=== PATIENT | male | born 1965 | race Caucasian/White ===

== ENCOUNTER 2017-01-09 15:35 | Inpatient (IN) | payer OTHER ==
[~2017-01-09] VITALS: Ht 172.7 cm; Wt 96.0 kg
[~2017-01-09 15:35] MED LIST: ADDE20 PO; CLON1 PO; NEUR100C PO; QUET1TAB11 PO; TAMS0.4C4 PO
[2017-01-17] MEDS ORDERED: ADDE30TA PO (13:56)
[2017-01-17] MEDS ORDERED: LACTCAP8 PO (13:56)
[2017-01-17] MEDS ORDERED: MAPA500T13 PO (13:56)
[2017-01-17] MEDS ORDERED: MULT-65 PO (13:56)
[2017-01-17] MEDS ORDERED: PRIL20TA2 PO (13:56)
[2017-01-19] MEDS ORDERED: LACTATED RINGER'S 1000 ML IV PRN (07:00)
[2017-01-19] MEDS ORDERED: VANCOMYCIN 1,000 MG/NS 250 ML IV SCH ×2 (07:00)
[2017-01-19] MEDS ORDERED: INSULIN HUMAN REGULAR 1,000 UNITS/10 ML VIAL SQ PRN (07:00)
[2017-01-19] MEDS ORDERED: ceFAZolin 2 GM PREMIX 50 ML ONE (07:00)
[2017-01-19] MEDS ORDERED: CHLORHEXIDINE GLUCONATE 2 % 1 PACK (2 CLOTHS) TOPICAL PRN (07:00)
[2017-01-19] MEDS ORDERED: METOPROLOL TARTRATE 25 MG TAB PO PRN (07:00)
[2017-01-19] MEDS ORDERED: THROMBIN (TOPICAL) 5,000 UNIT VIAL ONE (07:00)
[2017-01-19] MEDS ORDERED: BUPIVACAINE HCL PF 0.5% 30 ML VIAL ONE (07:00)
[2017-01-19] MEDS ORDERED: POVIDONE IODINE 5% (ANTISEPSIS KIT) 4 APPLICATIONS EACH NARE PRN (07:00)
[2017-01-19] MEDS ORDERED: GELFOAM SIZE 100 ONE (07:00)
[2017-01-19] MEDS ORDERED: HEPARIN SODIUM - SQ 10,000 UNITS/ML VIAL ONE (07:00)
[2017-01-19] MEDS ORDERED: SODIUM CHLORID 0.9% 500 ML IV PRN (07:00)
[2017-01-19] MEDS ORDERED: GENTAMICIN SULFATE 80 MG/2 ML VIAL ONE (07:01)
[2017-01-19] MEDS ORDERED: ALEV220T14 PO (07:11)
[2017-01-19 07:13] VITALS: BP 117/83; PULSE 80; RESP 18; TEMP 98; O2SAT 96
[2017-01-19] MEDS ORDERED: MIDAZOLAM HCL 2 MG/2 ML VIAL ONE (07:49)
[2017-01-19] MEDS ORDERED: ACETAMINOPHEN 1000 MG/100 ML VIAL IV ONE (07:49)
[2017-01-19] MEDS ORDERED: ARTIFICIAL TEARS OPTH OINT 3.5 APPLIC/3.5 GM TUBO ONE (07:49)
[2017-01-19] MEDS ORDERED: fentaNYL CITRATE 250 MCG/5 ML AMP ONE ×2 (07:50→07:51)
[2017-01-19] MEDS ORDERED: FAMOTIDINE 20 MG/2 ML VIAL ONE (07:50)
[2017-01-19] MEDS ORDERED: HYDROmorphone HCL PF 2 MG/ML VIAL ONE (07:50)
[2017-01-19] MEDS ORDERED: PROPOFOL 200 MG/20 ML AMP IV ONE (12:00)
[2017-01-19] MEDS ORDERED: LACTATED RINGER'S 1000 ML INJ 2,000 ML IV ONE (12:00)
[2017-01-19] MEDS ORDERED: ONDANSETRON HCL 4 MG/2 ML VIAL IV PUSH ONE (12:00)
[2017-01-19] MEDS ORDERED: PHENYLEPH/NS 1000 MCG/10 ML SYR IV ONE (12:00)
[2017-01-19] MEDS ORDERED: SODIUM CHLORID 0.9% 500 ML INJ 500 ML IV ONE (12:00)
[2017-01-19] MEDS ORDERED: ePHEDrine/NS 25 MG/5 ML SYR IV ONE (12:00)
[2017-01-19] MEDS ORDERED: diphenhydrAMINE HCL 50 MG/ML VIAL IV PRN (17:15)
[2017-01-19] MEDS ORDERED: SODIUM CHLORIDE 0.9% FLUSH 5 ML FLUSH IVF PRN (17:15)
[2017-01-19] MEDS ORDERED: MORPHINE SULFATE 4 MG/ML INJ IV PUSH PRN ×2 (17:15)
[2017-01-19] MEDS ORDERED: ACETAMINOPHEN 325 MG TAB PO PRN (17:15)
[2017-01-19] MEDS ORDERED: NALOXONE HCL 0.4 MG/ML AMP IV PRN (17:15)
--- NOTE | 2017-01-19 17:51 | PD.OP ---
Operative Report Date of Surgery: Jan 19, 2017 Preoperative Diagnosis: Lumbar spondylosis Postoperative Diagnosis: Lumbar spondylosis Procedure: L4-L5 decompressive laminectomy, interbody arthrodesis using Peek cage filled with autologous iliac crest bone graft, L4-L5 posterolateral fusion using autologous iliac crest bone graft, with demineralized bone matrix, L4-L5 instrumental fixation using transpedicular screws and rods, microsurgical dissection. Anesthesia: general Surgeon: Douglas Partida Edger Automatic(s): Merari Ayala Operation and Findings: Severe degenerative severe adjacent level degeneration at L4-L5 INDICATIONS FOR PROCEDURE Mr Rosenberg is a 51 year-old male who presented with intractable mechanical back pain and lázaro evidence of bilateral lower extremity L5 radiculopathy. He failed maximum nonsurgical management including multiple modalities of conservative treatment as well as pain management interventions by an interventional pain specialist. The patient has undergone a previous surgical procedure. A redo surgical decompression and arthrodhesis were indicated as a last resort. The [id number] details of the procedure, indications, alternatives, risks and potential complications were fully discussed with the patient. The patient fully understood. All the questions were answered. No guarantees were given. The patient voiced requesting the procedure and provided informed consents. The patient was offered the alternative of delaying the procedure and continuing with nonsurgical management. DETAILS OF THE SURGICAL PROCEDURE Prior to the procedure, the surgical incision was marked in the preoperative surgical holding room, and the procedure, risks, and potential complications revisited with the patient. Placement of electrodes for intraoperative neurophysiological monitoring was completed. The patient was taken to the operative room, and following induction of general anesthesia, endotracheal intubation was performed. A Vu catheter, bilateral ANNIKA hose and sequential compression devices were placed and kept throughout the procedure. The patient was positioned prone, over a Carlos table using gel pads and bolsters.. All pressure in the preoperative surgical holding room points were carefully padded with eggcrate and gel mattress. The eyes were taped shut after ointment was applied by the anesthesiologist to prevent corneal abrasion. A bear hugger was placed over the exposed upper body to maintain control of the core body temperature. The electrophysiological team placed needles and electrodes in the proper location and baseline SSEPs were registered prior to and after positioning. Following positioning the levels were carefully assessed using AP and lateral views with the C-arm. The surgical procedure was performed in several steps as follows: SURGICAL APPROACH Once the patient was positioned and the proper levels were confirmed with the C- arm, a midline incision was outlined on the skin extending from the spinous process of L4 down to the spinous process of L5. The skin incision was made with a #10 blade. Small subcutaneous bleeders were controlled with the cautery and the dissection was carried out into the deeper planes opening the thoracolumbar fascia with the Bovie. The spinous process of L4-L5 were identified and a subperiosteal dissection was carried out over the spinous process laminae, facet and transverse processes of L4, and L5. The prior instrumentation was carefully exposed and a self-retaining retractor was placed on the incision. At this point of the procedure, the cross link of the prior instrumentation was carefully exposed free of scar tissue and the cross link was removed. Then , the caps of the previously placed screws at L5 were sequentially removed and the rods were cut between L5 and S1 allowing removal of the rods. INSTRUMENTAL FIXATION At this point of the procedure, placement of bilateral transpedicular screws was necessary for stabilization of the spine. Initially, the entry point for the screw was selected anatomically at the junction of the facet joint , transverse process and para interarticularis. Bilateral transpedicular screws were placed at L4. Initially, the entry point for the screw was selected anatomically at the junction of the facet, with the transverse process, and the pars interarticularis at L4. This was started with a Giamshetti needle followed by the use of a suresh wire. A tap was used to create the threads for the screws. Finally bilateral transpedicular screws were carefully placed bilaterally at L4 under fluoroscopic visualization. An appropriate purchase was achieved with all screws. The position of each screw was assessed anatomically with an AP, lateral , oblique Xrays. An intraoperative scan view of the spine was then performed using the iso-centric c-arm. Each screw was then assessed electrophysiologically stimulating each screw with a nerve stimulator. SURGICAL DECOMPRESSION There was significant mass effect with compression of the neural structures. In order to relieve neural compression, it was necessary to perform a decompressive laminectomy, with decompression of the spinal canal and bilateral lateral recesses. Note that the scope of such decompression was significantly more extensive than the minimal exposure necessary to perform an interbody fusion, as there was extreme facet arthropathy with near complete collapse of the disk spaces and severe stenosis cause by the hyperthrophic joint facets. At this point of the procedure the operative microscope was draped in the usual sterile fashion and brought to the field. The rest of the surgical procedure was performed using microdissection technique with the exception of the closure. Under the operating microscope, a decompressive laminectomy was carried out at L4-L5 as follow: The laminae, base of the spinous processes and facets were carefully drilled exposing the ligamentum flavum. The facets were abnormal with mechanical instability. A disk protusion was compressing the neural structures and exiting nerve roots. A near complete facetectomy was necessary resulting in further instability. The ligamentum flavum appeared hypertrophic, resulting on mass effect on the dorsal surface of the neural structures. The superior free border of the ligamentum flavum was elevated with a ligament dissector and the ligamentum flavum was removed with a 3 and 4 mm Kerrison forceps. The ligament was very adherent to the dural sac and during the dissection, and extreme care was taken during the dissection. The exiting nerve roots were identified, and a wide foraminotomy was performed with a Kerrison in their trajectory towards the neural foramen. Epidural veins located laterally to the dural sac were coagulated with the bipolar cautery, and then incised using microscissors. Gentle medial retraction of the dural sac allowed me to expose the disc space for the discectomy. Upon completion of the discectomy, an excellent decompression of the neural structures was achieved. Increased motion was noted thorough the procedure, which was consistent with mechanical instability. INTERBODY ARTHRODHESIS In order to correct the narrowing of the disk space and maintain distraction of the space, and to achieve a solid interbody fusion, it was necessary the insertion of an interbody device into the disk space. Otherwise, the disk space would collapse, compromising the result of the surgical procedure. At this point of the procedure, the annulus fibrosus of the disk was carefully coagulated with a bipolar cautery and incised using an 11 bladed knife. Then, a microdiscectomy was carried out in a standard fashion using a combination of straight and up-biting pituitary forceps. A reverse angle curette was applied underneath the posterior longitudinal ligament, and used to push the disk fragments into the disk space, so they can be safely removed with a pituitary forceps. Once the discectomy was completed, it was necessary to decorticate the endplates, in order to eliminate the cartilaginous endplate and to expose healthy bone appropriate to perform the interbody fusion. The endplates at L4- L5 were then thoroughly decorticated using increasing size bone sukumar and ring curets, eliminating the cartilaginous fragments from both, the superior and inferior endplates. A disk space distractor was applied to the pedicle screws and gentle distraction was applied. This maneuver was assisted by the use of a disk distractor. Increased motility was noted at the disk, which was consistent with instability due to facet arthropathy. Once a thorough preparation of the disk space was achieved, the disk space was irrigated with antibiotic solution, and the interbody fusion was performed by carefully impacting an expandable PPEK cage filled with autologous iliac crest bone graft. The cage was cartefully expanded. A solid position of the cage with good purchase was achieved. The position of the cage was assessed anatomically with a probe and radiologically with the C-arm. POSTEROLATERAL FUSION The posterolateral fusion is a critical component to the procedure, to prevent future fatigue and failure of the instrumental fixation. Initially, the transverse processes of the vertebral bodies, lateral surface of the facets and the lateral gutters of the spine were carefully cleaned, eliminating all soft tissue and muscle attachments. The area was then irrigated with a large amount of antibiotic solution. Subsequently, the transverse processes, lateral surface of the facets, and lateral gutters of the spine were thoroughly decorticated using the TPS drill with a 5mm cutting carol, exposing cancellous bone, in preparation for the posterolateral fusion. The incision was again irrigated with antibiotic solution. Then, the posterolateral fusion was then performed by carefully packing the lateral gutters of the spine at L4-L5 with autologous bone graft combined with demineralized bone matrix. I packed as much bone as possible. COMPLETION OF THE INSTRUMENTATION AND CLOSURE The rods were brought to the field, applied to all the screws, and the screw caps were sequentially applied. Compression was performed between the pedicle screws, and final tightening of the screws was completed using a torque wrench. The incision was again thoroughly irrigated with several liters of ntibiotic solution, and hemostasis secured with the bipolar cautery. A Valsalva Maneuver performed by the anesthesiologist failed to show any evidence of cerebrospinal fluid leak or bleeding. A 7 mm Carlos-Cobos drain was left in the epidural space and externalized through a separate stab incision. The incision was then closed in planes. 0 Vicryl was used in an interrupted fashion to close the thoracolumbar fascia and the superficial fascia. The subcutaneous tissue was then approximated using 3-0 Vicryl in an interrupted fashion. Special care was taken to avoid space. The skin was then closed with 4-0 Vicryl in a running, subcuticular fashion. Dermabond was applied to the skin. Each plane of closure was irrigated with antibiotic solution. At the end of the procedure the sponge, needle and instrument counts were all correct. Estimated blood loss was 150 cc. No blood transfusion was given. The entire procedure was performed using continuous electrophysiological monitoring of the somatosensorial evoked potentials and EMG. The patient received prophylactic antibiotics. The patient was then extubated and transferred to the recovery room in stable condition. Douglas Partida MD Jan 19, 2017 17:51
[2017-01-19] MEDS ORDERED: *MEPERIDINE 25 MG INJ VIAL PERIprocedural Use ONLY ONE (18:04)
--- NOTE | 2017-01-19 18:29 | RADRPT ---
EXAM DATE/TIME: 01/19/2017 12:36 [facility] COMPARISON: No previous studies available for comparison. INDICATIONS : L4-S1 fusion. MEDICAL HISTORY : None. SURGICAL HISTORY : None. ENCOUNTER: Subsequent ACUITY: 1 day PAIN SCORE: Non-responsive. LOCATION: L-Spine FINDINGS: Multiple Hinkle down lateral views of lower lumbar spine were obtained intraoperatively using a matrix camera. The first image demonstrates a metal probe posterior to the L3-4 interspace. There are 2 thi n metallic pin like devices projected over the L5 vertebral body. The patient has pedicle screws bila terally at the S1 level with posterior fixation sierra. There is bone graft material and markers in the L5-S1 space. Alignment is anatomic. There are mild degenerative changes at the L4-5 level. This study is labeled assuming 5 [id number] lumbar-type vertebra. The subsequent images demonstrate placem ent of pedicle screws bilaterally at the L3 and L4 levels with metal intervertebral device placed at L3-4. There is placement of posterior fixation rods on the final film. CONCLUSION: Interval fusion at the L3-4 and L4-5 levels. Orestes Hartley MD on January 19, 2017 at 18:20 Board Certified Radiologist. This report was verified electronically.
[2017-01-19] MEDS ORDERED: DO NOT ADM ANY ANTICOAGULANT DRUGS PRN (20:15)
[2017-01-19 20:45] VITALS: BP 116/99; PULSE 90; RESP 18; TEMP 96.2; O2SAT 96
[2017-01-19] MEDS: SODIUM CHLORIDE 0.9% FLUSH 5 ML FLUSH IVF SCH (21:00)
[2017-01-19 21:25] VITALS: O2SAT 96
[2017-01-19] MEDS: PCA - TOTAL MG DILAUDID DELIVERED PER SHIFT SCH (22:00)
[2017-01-19] MEDS: ceFAZolin 2 GM PREMIX 50 ML IV SCH (23:58)
[2017-01-20] VITALS (7 sets, daily range): BP systolic 118–155; BP diastolic 65–90; PULSE 61–91; RESP 16–18; TEMP 95.9–98; O2SAT 92–98
[2017-01-20] MEDS: PCA - TOTAL MG DILAUDID DELIVERED PER SHIFT SCH ×3 (04:47→22:05)
[2017-01-20] MEDS: NS + KCL 20 MEQ INJ 1,000 ML IV SCH ×4 (04:47→23:46)
[2017-01-20] MEDS: HYDROmorphone HCL PCA 6 MG/30 ML IV SCH (04:53)
[2017-01-20] MEDS: SODIUM CHLOR 0.9% 1000 ML INJ 1,000 ML IV SCH (07:00)
[2017-01-20 07:13] LABS: AUTOMATED NEUTROPHIL # 8.5 TH/MM3 (1.8-7.7); BASOPHIL % 0.2 % (0.0-2.0); HEMATOCRIT 44.9 % (39.0-51.0); HEMO FLAGS DIFF FINAL; LYMPH % 6.3 % (9.0-44.0); LYMPHOCYTE # 0.6 TH/MM3 (1.0-4.8); MEAN CELL VOLUME 86.4 FL (80.0-100.0); MEAN CORPUSCULAR HEMOGLOBIN 29.6 PG (27.0-34.0); MEAN CORPUSCULAR HGB CONC 34.3 % (32.0-36.0); MONO % 8.4 % (0.0-8.0); NEUT % 85.1 % (16.0-70.0); PLATELET COUNT 126 TH/MM3 (150-450); RED CELL DISTRIBUTION WIDTH 14.1 % (11.6-17.2); WHITE BLOOD COUNT 9.9 TH/MM3 (4.0-11.0)
[2017-01-20 07:30] LABS: BICARBONATE 27.7 MEQ/L (21.0-32.0); POTASSIUM 4.4 MEQ/L (3.5-5.1)
[2017-01-20] MEDS: ceFAZolin 2 GM PREMIX 50 ML IV SCH ×2 (08:38→16:26)
[2017-01-20] MEDS: SODIUM CHLORIDE 0.9% FLUSH 5 ML FLUSH IVF SCH ×2 (08:49→21:20)
[2017-01-20] MEDS: PANTOPRAZOLE SODIUM 40 MG VIAL IVP SCH ×2 (08:50→13:15)
--- NOTE | 2017-01-20 10:04 | PD.CONS ---
HPI Service [facility] Hospitalists Consult Requested By Primary Care Physician Demetrius Hall MD Diagnoses: History of Present Illness Pt is 51 yo presenting with bilateral lower extremity radiculopathy. He was admitted by Dr Partida and taken 01/19 for L4-L5 decompressive laminectomy, interbody arthrodesis using Peek cage filled with autologous iliac crest bone graft, L4-L5 posterolateral fusion using autologous iliac crest bone graft, with demineralized bone matrix, L4-L5 instrumental fixation using transpedicular screws and rods. Today he is in chair but with alot of nausea and vomiting. Review of Systems Other n/v bilateral lower ext radiculopathy Past Family Social History Past Medical History back pain with lower ext radiculopathy "cystic fibrosis" yearly pna htn bipolar anxiety/depression hx laminectomy x 2 gynecomastia surgery. Reported Medications Reported Meds & Active Scripts Active Reported Aleve Arthritis (Naproxen Sodium) 220 Mg Tab 220 Mg PO BID PRN Prilosec (Omeprazole Magnesium) 20 Mg Tab 20 Mg PO DAILY Probiotic (Lactobacillus Acidophilus) 1 Cap Cap 1 Cap PO DAILY Mapap Extra Strength (Acetaminophen) 500 Mg Tab 500 Mg PO Q4-6H PRN Multi-Vitamin Daily (Multiple Vitamin) 1 Tab Tab 1 Tab PO DAILY Adderall (Amphetamine-Dextroamphetamine) 30 Mg Tab 30 Mg PO DAILY Avoid late evening doses. Space doses at least 4 to 6 hours if more than once/day dosing. Quetiapine (Quetiapine Fumarate) 400 Mg Tab 800 Mg PO HS Klonopin (Clonazepam) 1 Mg Tab 1 Mg PO HS Neurontin (Gabapentin) 100 Mg Cap 100 Mg PO HS Allergies: Coded Allergies: No Known Allergies (Unverified , 01/19/17) Family History nc Social History no etoh/tob Physical Exam Vital Signs in chair appears nauseated oriented and follows commands heart reg lung cta abd s/nt ext no edema Vital Signs Date Time Temp Pulse Resp B/P Pulse Ox O2 Delivery O2 Flow Rate FiO2 01/20/17 08:29 98 21 01/20/17 08:00 96.8 91 16 127/75 98 01/20/17 04:53 18 01/20/17 04:15 98.0 85 18 118/79 97 01/20/17 00:10 96.5 85 18 123/65 95 01/19/17 21:25 96 Nasal Cannula 2.00 01/19/17 20:45 96.2 90 18 116/99 96 01/19/17 19:44 Nasal Cannula 2.00 01/19/17 18:30 91 12 148/79 96 Nasal Cannula 3 01/19/17 18:15 91 12 149/79 97 Nasal Cannula 3 01/19/17 18:00 86 12 136/81 96 Nasal Cannula 3 01/19/17 17:45 79 12 128/77 98 Nasal Cannula 3 01/19/17 17:35 97.6 80 12 124/72 98 Nasal Cannula 3 Laboratory Laboratory Tests Test 01/20/17 06:43 White Blood Count 9.9 Red Blood Count 5.20 Hemoglobin 15.4 Hematocrit 44.9 Mean Corpuscular Volume 86.4 Mean Corpuscular Hemoglobin 29.6 Mean Corpuscular Hemoglobin 34.3 Concent Red Cell Distribution Width 14.1 Platelet Count 126 Mean Platelet Volume 8.0 Neutrophils (%) (Auto) 85.1 Lymphocytes (%) (Auto) 6.3 Monocytes (%) (Auto) 8.4 Eosinophils (%) (Auto) 0.0 Basophils (%) (Auto) 0.2 Neutrophils # (Auto) 8.5 Lymphocytes # (Auto) 0.6 Monocytes # (Auto) 0.8 Eosinophils # (Auto) 0.0 Basophils # (Auto) 0.0 CBC Comment DIFF FINAL Differential Comment Sodium Level 141 Potassium Level 4.4 Chloride Level 108 Carbon Dioxide Level 27.7 Anion Gap 5 Blood Urea Nitrogen 18 Creatinine 0.73 Estimat Glomerular Filtration 113 Rate Random Glucose 119 Calcium Level 8.0 Result Diagram: 01/20/17 0643 01/20/17 0643 Assessment and Plan Problem List: (1) Radiculopathy Status: Acute Plan: Pt is 51 yo presenting with bilateral lower extremity radiculopathy. He was admitted by Dr Partida and taken 01/19 for L4-L5 decompressive laminectomy, interbody arthrodesis using Peek cage filled with autologous iliac crest bone graft, L4-L5 posterolateral fusion using autologous iliac crest bone graft, with demineralized bone matrix, L4-L5 instrumental fixation using transpedicular screws and rods. Today he is in chair but with alot of nausea and vomiting. ..He has post op n/v today - antiemetics orders -cont ivf -will order laxative regimen -cont pain medication per nsg -dvt prophylaxis -liquids today and advance diet slowly -ambulate as tolerated. -resume home medications. (2) Bipolar 1 disorder Status: Chronic Plan: home meds (3) HTN (hypertension) Status: Chronic Plan: home meds (4) Anxiety and depression Status: Chronic Plan: home meds. Damian Peña MD Jan 20, 2017 10:04 -cont ivf -will order laxative regimen -cont pain medication per nsg -dvt prophylaxis -liquids today and advance diet slowly -ambulate as tolerated. -resume home medications. (2) Bipolar 1 disorder Status: Chronic Plan: home meds (3) HTN (hypertension) Status: Chronic Plan: home meds (4) Anxiety and depression Status: Chronic Plan: home meds. Damian Peña MD Jan 20, 2017 10:04 01/20/17 08:29 98 21 01/20/17 08:00 96.8 91 16 127/75 98 01/20/17 04:53 18 01/20/17 04:15 98.0 85 18 118/79 97 01/20/17 00:10 96.5 85 18 123/65 95 01/19/17 21:25 96 Nasal Cannula 2.00 01/19/17 20:45 96.2 90 18 116/99 96 01/19/17 19:44 Nasal Cannula 2.00 01/19/17 18:30 91 12 148/79 96 Nasal Cannula 3 01/19/17 18:15 91 12 149/79 97 Nasal Cannula 3 01/19/17 18:00 86 12 136/81 96 Nasal Cannula 3 01/19/17 17:45 79 12 128/77 98 Nasal Cannula 3 01/19/17 17:35 97.6 80 12 124/72 98 Nasal Cannula 3 Physical Exam GENERAL: This is a well-nourished, well-developed patient, in no apparent distress. SKIN: No rashes, ecchymoses or lesions. Cool and dry. HEAD: Atraumatic. Normocephalic. No temporal or scalp tenderness. EYES: Pupils equal round and reactive. Extraocular motions intact. No scleral icterus. No injection or drainage. ENT: Nose without bleeding, purulent drainage or septal hematoma. Throat without erythema, tonsillar hypertrophy or exudate. Uvula midline. Airway patent. NECK: Trachea midline. No JVD or lymphadenopathy. Supple, nontender, no meningeal signs. CARDIOVASCULAR: Regular rate and rhythm without murmurs, gallops, or rubs. RESPIRATORY: Clear to auscultation. Breath sounds equal bilaterally. No wheezes , rales, or rhonchi. GASTROINTESTINAL: Abdomen soft, non-tender, nondistended. No hepato-splenomegaly , or palpable masses. No guarding. MUSCULOSKELETAL: Extremities without clubbing, cyanosis, or edema. No joint tenderness, effusion, or edema noted. No calf tenderness. Negative Homans sign bilaterally. NEUROLOGICAL: Awake and alert. Cranial nerves II through XII intact. Motor and sensory grossly within normal limits. Five out of 5 muscle strength in all muscle groups. Normal speech. Laboratory Laboratory Tests Test 01/20/17 06:43 White Blood Count 9.9 Red Blood Count 5.20 Hemoglobin 15.4 Hematocrit 44.9 Mean Corpuscular Volume 86.4 Mean Corpuscular Hemoglobin 29.6 Mean Corpuscular Hemoglobin 34.3 Concent Red Cell Distribution Width 14.1 Platelet Count 126 Mean Platelet Volume 8.0 Neutrophils (%) (Auto) 85.1 Lymphocytes (%) (Auto) 6.3 Monocytes (%) (Auto) 8.4 Eosinophils (%) (Auto) 0.0 Basophils (%) (Auto) 0.2 Neutrophils # (Auto) 8.5 Lymphocytes # (Auto) 0.6 Monocytes # (Auto) 0.8 Eosinophils # (Auto) 0.0 Basophils # (Auto) 0.0 CBC Comment DIFF FINAL Differential Comment Sodium Level 141 Potassium Level 4.4 Chloride Level 108 Carbon Dioxide Level 27.7 Anion Gap 5 Blood Urea Nitrogen 18 Creatinine 0.73 Estimat Glomerular Filtration 113 Rate Random Glucose 119 Calcium Level 8.0 Result Diagram: 01/20/1743 01/20/1743 Damian Peña MD Jan 20, 2017 10:04
[2017-01-20] MEDS ORDERED: LACTULOSE SYRUP 20 GM/30 ML CUP PO PRN (10:15)
[2017-01-20] MEDS ORDERED: BISACODYL EC 5 MG TABEC PO ONE (10:15)
[2017-01-20] MEDS ORDERED: DOCUSATE SODIUM 100 MG CAP PO ONE (10:15)
[2017-01-20] MEDS ORDERED: BISACODYL EC 5 MG TABEC PO PRN (10:15)
[2017-01-20] MEDS ORDERED: ONDANSETRON HCL 4 MG/2 ML VIAL IV PUSH PRN (10:15)
--- NOTE | 2017-01-20 11:26 | HHI.NSPN ---
(Latia Sosa) Note Status Status: Progress Note (Latia Sosa) Interval History Interval History Mr. Rosenberg s/p L4-L5 decompressive laminectomy, interbody arthrodesis using Peek cage filled with autologous iliac crest bone graft, L4-L5 posterolateral fusion using autologous iliac crest bone graft, with, demineralized bone matrix , L4-L5 instrumental fixation using transpedicular screws and rods, microsurgical dissection on 01/19/17. 01/20: sitting up in chair, c/o moderate nausea with pain medications, requesting less stronger. (Latia Sosa) Labs, Micro, & Vital Signs Results Date Time Temp Pulse Resp B/P Pulse Ox O2 Delivery O2 Flow Rate FiO2 01/20/17 08:29 98 21 01/20/17 08:00 96.8 91 16 127/75 98 01/20/17 04:53 18 01/20/17 04:15 98.0 85 18 118/79 97 01/20/17 00:10 96.5 85 18 123/65 95 01/19/17 21:25 96 Nasal Cannula 2.00 01/19/17 20:45 96.2 90 18 116/99 96 01/19/17 19:44 Nasal Cannula 2.00 01/19/17 18:30 91 12 148/79 96 Nasal Cannula 3 01/19/17 18:15 91 12 149/79 97 Nasal Cannula 3 01/19/17 18:00 86 12 136/81 96 Nasal Cannula 3 01/19/17 17:45 79 12 128/77 98 Nasal Cannula 3 01/19/17 17:35 97.6 80 12 124/72 98 Nasal Cannula 3 01/20/17 07:00 Intake Total 2490 ml Output Total 1115 ml Balance 1375 ml Constitutional Vital Signs Date Time Temp Pulse Resp B/P Pulse Ox O2 Delivery O2 Flow Rate FiO2 01/20/17 08:29 98 21 01/20/17 08:00 96.8 91 16 127/75 98 01/20/17 04:53 18 01/20/17 04:15 98.0 85 18 118/79 97 01/20/17 00:10 96.5 85 18 123/65 95 01/19/17 21:25 96 Nasal Cannula 2.00 01/19/17 20:45 96.2 90 18 116/99 96 01/19/17 19:44 Nasal Cannula 2.00 01/19/17 18:30 91 12 148/79 96 Nasal Cannula 3 01/19/17 18:15 91 12 149/79 97 Nasal Cannula 3 01/19/17 18:00 86 12 136/81 96 Nasal Cannula 3 01/19/17 17:45 79 12 128/77 98 Nasal Cannula 3 01/19/17 17:35 97.6 80 12 124/72 98 Nasal Cannula 3 01/20/17 07:00 Intake Total 2490 ml Output Total 1115 ml Balance 1375 ml (Latia Sosa) Review of Systems/Exam Exam The patient is alert, awake and oriented to time, place and person. Speech is fluent. Sitting up in chair with TLSO Cranial nerve examination: pupils to be equal, round and reactive to light. Extra-ocular movements are intact. Facial motor and sensory function are normal and symmetrical. Neck is soft and supple Motor: moving all four extremities, limited LE due to pain (Latia Sosa) Medications Current Medications Current Medications Medications (Trade) Dose Ordered Sig/Mauro Route PRN Reason Start Time Stop Time Status Last Admin Dose Admin Sodium Chloride 1,000 ml @ 30 mls/hr Q24H IV 01/19/17 07:00 Potassium Chloride/Sodium Chloride (NS + KCl 20 Meq Inj) 1,000 ml @ 100 mls/hr Q10H IV 01/19/17 19:00 01/20/17 04:47 IV Flush (NS Flush) 2 ml UNSCH PRN IVF FLUSH AFTER USING IV ACCESS 01/19/17 17:15 IV Flush 2 ml 2 ml BID IVF 01/19/17 21:00 01/20/17 08:49 Cefazolin Sodium/ Dextrose (Ancef 2 Gm Premix) 50 ml @ 100 mls/hr Q8H IV 01/20/17 00:30 01/20/17 16:59 01/20/17 08:38 Pantoprazole Sodium (Protonix Inj) 40 mg DAILY IVP 01/20/17 09:00 01/20/17 08:50 Morphine Sulfate (Morphine Inj) 2 mg Q2H PRN IV PUSH PAIN SCALE 1 TO 6 01/19/17 17:15 Morphine Sulfate (Morphine Inj) 4 mg Q2H PRN IV PUSH PAIN SCALE 7 TO 10 01/19/17 17:15 Acetaminophen (Tylenol) 650 mg Q4H PRN PO TEMPERATURE > 101.5 F 01/19/17 17:15 01/20/17 08:38 Naloxone HCl (Narcan Inj) 0.4 mg UNSCH PRN IV RESPIRATORY RATE LESS THAN 10 01/19/17 17:15 Diphenhydramine HCl (Benadryl Inj) 25 mg Q6H PRN IV ITCHING 01/19/17 17:15 Hydromorphone HCl (Dilaudid GARMENT WORKER Inj) 6 mg UNSCH IV 01/19/17 17:15 01/20/17 04:53 GARMENT WORKER Dosage Infused (Pha) 1 Q8HR .XX 01/19/17 22:00 01/20/17 04:47 Miscellaneous Information ALL NURSING DEPARTME... UNSCH PRN .XX SEE LABEL COMMENTS 01/19/17 20:15 01/20/17 20:14 Ondansetron HCl (Zofran Inj) 4 mg Q4H PRN IV PUSH NAUSEA OR VOMITING 01/20/17 10:15 Docusate Sodium (Colace) 100 mg BID PO 01/20/17 21:00 Bisacodyl (Dulcolax Ec) 10 mg DAILY PRN PO severe constipation 01/20/17 10:15 Lactulose (Lactulose Liq) 30 ml DAILY PRN PO severe constipation 01/20/17 10:15 Amphetamine/ Dextroamphetamine (Adderall) 30 mg DAILY PO 01/21/17 09:00 Clonazepam (KlonoPIN) 1 mg HS PO 01/20/17 21:00 Gabapentin (Neurontin) 100 mg HS PO 01/20/17 21:00 Lactobacillus Acidophilus (Lactinex) 1 tab DAILY PO 01/21/17 09:00 Multivitamins (Theragran) 1 tab DAILY PO 01/21/17 09:00 Pantoprazole Sodium (Protonix) 20 mg DAILY PO 01/21/17 09:00 Quetiapine Fumarate (SEROquel) 800 mg HS PO 01/20/17 21:00 (Latia Sosa) Medical Decision Making MDM Remarks 51 y/o male s/p PLIF, POD 1 post-op nausea, otherwise stable (Latia Sosa) Plan Plan Remarks cont supportive care for nausea, zofran prn, start Tramadol prn, keep GARMENT WORKER for now cont therapy, TLSO OOB IS every hour cont nonchemical dvt prophylaxis in view of recent sx, medical mgt following, appreciate assistance (Latia Sosa) Attending Statement Neuro. Neuro checks in a serial fashion. Respiratory. pulmonary toilette, nasotracheal suction, and breathing treatments with nebulizers. PT and OT eval Nutrition. NPO Renal. monitor closely urine output, BUN and creatinine Endocrine. Monitor serial Acu checks and SSI for tight control ID monitor for signs of infection Protonix for stress ulcer prophylaxis Jun hose and SCD's for DVT prophylaxis The exam, history, and the medical decision-making described in the above note were completed with the assistance of the mid-level provider. I reviewed and agree with the findings presented. I attest that I had a [id number] encounter with the patient on the same day, and personally performed and documented my assessment and findings in the medical record. (Douglas Partida MD) Latia Sosa Jan 20, 2017 11:26 Douglas Partida MD Jan 22, 2017 08:41
[2017-01-20] MEDS: traMADol HCL 50 MG TAB PO PRN ×2 (13:28→22:04)
[2017-01-20] MEDS ORDERED: PROMETHAZINE HCL 25 MG TAB PO PRN (15:15)
[2017-01-20] MEDS ORDERED: PROMETHAZINE HCL 25 MG TAB PO ONE (15:15)
[2017-01-20] MEDS ORDERED: MECLIZINE HCL 25 MG TAB PO ONE (15:15)
[2017-01-20] MEDS: MECLIZINE HCL 25 MG TAB PO SCH ×2 (18:03→23:46)
[2017-01-20] MEDS: GABAPENTIN 100 MG CAP PO SCH (22:03)
[2017-01-20] MEDS: QUEtiapine FUMARATE 200 MG TAB PO SCH (22:05)
[2017-01-20] MEDS: clonazePAM 1 MG TAB PO SCH (22:05)
[2017-01-20] MEDS: DOCUSATE SODIUM 100 MG CAP PO SCH (22:05)
[2017-01-21 00:15] VITALS: BP 153/85; PULSE 92; RESP 18; TEMP 96.9; O2SAT 98
[2017-01-21 04:15] VITALS: BP 125/65; PULSE 96; RESP 18; TEMP 98.8; O2SAT 96
[2017-01-21] MEDS: PCA - TOTAL MG DILAUDID DELIVERED PER SHIFT SCH ×3 (06:22→21:50)
[2017-01-21] MEDS: MECLIZINE HCL 25 MG TAB PO SCH ×3 (06:22→17:19)
[2017-01-21] MEDS: SODIUM CHLOR 0.9% 1000 ML INJ 1,000 ML IV SCH (06:22)
[2017-01-21] MEDS: traMADol HCL 50 MG TAB PO PRN (06:23)
[2017-01-21 08:00] VITALS: BP_SYST 118; BP_SYST 133; BP_DIAS 70; BP_DIAS 79; PULSE 82; PULSE 84; RESP 16; RESP 18; TEMP 97.7; TEMP 98.8; O2SAT 95; O2SAT 96
[2017-01-21] MEDS: PANTOPRAZOLE SOD 20 MG DELAYED RELEASE TAB PO SCH (08:23)
[2017-01-21] MEDS: DEXTROAMPHETAMINE/AMPHETAMINE 30 MG TAB PO SCH (08:24)
[2017-01-21] MEDS: DOCUSATE SODIUM 100 MG CAP PO SCH ×2 (08:24→21:50)
[2017-01-21] MEDS: MULTIVITAMIN TAB PO SCH (08:24)
[2017-01-21] MEDS: LACTOBACILLUS ACIDOPHILUS TAB PO SCH (08:24)
[2017-01-21] MEDS: SODIUM CHLORIDE 0.9% FLUSH 5 ML FLUSH IVF SCH ×2 (08:48→21:48)
--- NOTE | 2017-01-21 09:53 | HHI.PR ---
Subjective Remarks alot of pain. He wasn't using the tire bagger nausea seems better Objective Vitals lying in bed oriented heart reg lung cta abd s/nt ext no edema Vital Signs Date Time Temp Pulse Resp B/P Pulse Ox O2 Delivery O2 Flow Rate FiO2 01/21/17 08:00 97.7 84 18 133/70 96 01/21/17 04:15 98.8 96 18 125/65 96 01/21/17 00:15 96.9 92 18 153/85 98 01/20/17 20:05 97.2 72 18 155/81 98 01/20/17 19:04 Room Air 01/20/17 17:00 96.2 86 16 128/90 95 01/20/17 14:00 15 01/20/17 12:00 95.9 61 16 133/84 92 01/20/17 01/20/17 01/21/17 15:00 23:00 07:00 Intake Total 990 ml 520 ml 360 ml Output Total 440 ml 390 ml 1290 ml Balance 550 ml 130 ml -930 ml Intake Oral 240 ml 240 ml 360 ml IV Total 750 ml 280 ml Output Urine Total 200 ml 350 ml 1250 ml Emesis 100 ml Drainage Total 140 ml 40 ml 40 ml # Bowel Movements 0 0 0 Result Diagram: 01/20/1743 01/20/17 0643 A/P Problem List: (1) Radiculopathy Status: Acute Plan: Pt is 51 yo presenting with bilateral lower extremity radiculopathy. He was admitted by Dr Partida and taken 01/19 for L4-L5 decompressive laminectomy, interbody arthrodesis using Peek cage filled with autologous iliac crest bone graft, L4-L5 posterolateral fusion using autologous iliac crest bone graft, with demineralized bone matrix, L4-L5 instrumental fixation using transpedicular screws and rods. Today he is in chair but with alot of nausea and vomiting. ..He had alot of post op n/v..now with surgical site pain - antiemetics orders -cont ivf until taking po. - laxative regimen -cont pain medication per nsg. he now knows to use the tire bagger..adjust as needed. -dvt prophylaxis -advance diet as tolerated -PT -resume home medications. (2) Bipolar 1 disorder Status: Chronic Plan: home meds (3) HTN (hypertension) Status: Chronic Plan: home meds (4) Anxiety and depression Status: Chronic Plan: home meds. Damian Peña MD Jan 21, 2017 09:53
[2017-01-21] MEDS ORDERED: ACETAMINOPHEN/HYDROcodone 325 MG/10 MG TAB PO PRN (11:00)
[2017-01-21] MEDS: NS + KCL 20 MEQ INJ 1,000 ML IV SCH ×2 (11:00→21:48)
--- NOTE | 2017-01-21 11:02 | HHI.NSPN ---
(Latia Sosa) Note Status Status: Progress Note (Latia Sosa) Interval History Interval History Mr. Rosenberg s/p L4-L5 decompressive laminectomy, interbody arthrodesis using Peek cage filled with autologous iliac crest bone graft, L4-L5 posterolateral fusion using autologous iliac crest bone graft, with, demineralized bone matrix , L4-L5 instrumental fixation using transpedicular screws and rods, microsurgical dissection on 01/19/17. 01/20: sitting up in chair, c/o moderate nausea with pain medications, requesting less stronger. 01/21: pain a little better, controlled with RACE BOARD ATTENDANT, nausea also better today, reports not tolerating Tramadol. c/o constipation. (Latia Sosa) Labs, Micro, & Vital Signs Results Date Time Temp Pulse Resp B/P Pulse Ox O2 Delivery O2 Flow Rate FiO2 01/21/17 08:00 97.7 84 18 133/70 96 01/21/17 04:15 98.8 96 18 125/65 96 01/21/17 00:15 96.9 92 18 153/85 98 01/20/17 20:05 97.2 72 18 155/81 98 01/20/17 19:04 Room Air 01/20/17 17:00 96.2 86 16 128/90 95 01/20/17 14:00 15 01/20/17 12:00 95.9 61 16 133/84 92 01/21/17 07:00 Intake Total 1870 ml Output Total 2120 ml Balance -250 ml Constitutional Vital Signs Date Time Temp Pulse Resp B/P Pulse Ox O2 Delivery O2 Flow Rate FiO2 01/21/17 08:00 97.7 84 18 133/70 96 01/21/17 04:15 98.8 96 18 125/65 96 01/21/17 00:15 96.9 92 18 153/85 98 01/20/17 20:05 97.2 72 18 155/81 98 01/20/17 19:04 Room Air 01/20/17 17:00 96.2 86 16 128/90 95 01/20/17 14:00 15 01/20/17 12:00 95.9 61 16 133/84 92 01/21/17 07:00 Intake Total 1870 ml Output Total 2120 ml Balance -250 ml (Latia Sosa) Review of Systems/Exam Exam Mr. Rosenberg is alert, awake and oriented to time, place and person. Speech is fluent Cranial nerve examination: pupils equal, round and reactive to light. Extra- ocular movements are intact. Facial motor symmetrical. Neck is soft and supple Motor: moving all four extremities, limited LE due to pain Extremities: no swelling Abdomen: mild discomfort (Latia Sosa) Medications Current Medications Current Medications Medications (Trade) Dose Ordered Sig/Mauor Route PRN Reason Start Time Stop Time Status Last Admin Dose Admin Sodium Chloride 1,000 ml @ 30 mls/hr Q24H IV 01/19/17 07:00 Potassium Chloride/Sodium Chloride (NS + KCl 20 Meq Inj) 1,000 ml @ 100 mls/hr Q10H IV 01/19/17 19:00 01/20/17 16:11 IV Flush (NS Flush) 2 ml UNSCH PRN IVF FLUSH AFTER USING IV ACCESS 01/19/17 17:15 IV Flush (NS Flush) 2 ml BID IVF 01/19/17 21:00 01/20/17 08:49 Pantoprazole Sodium (Protonix Inj) 40 mg DAILY IVP 01/20/17 09:00 01/20/17 13:15 Acetaminophen (Tylenol) 650 mg Q4H PRN PO TEMPERATURE > 101.5 F 01/19/17 17:15 01/20/17 08:38 Naloxone HCl (Narcan Inj) 0.4 mg UNSCH PRN IV RESPIRATORY RATE LESS THAN 10 01/19/17 17:15 Diphenhydramine HCl (Benadryl Inj) 25 mg Q6H PRN IV ITCHING 01/19/17 17:15 Hydromorphone HCl (Dilaudid RACE BOARD ATTENDANT Inj) 6 mg UNSCH IV 01/19/17 17:15 01/20/17 04:53 RACE BOARD ATTENDANT Dosage Infused (Pha) 1 Q8HR .XX 01/19/17 22:00 01/21/17 06:22 Ondansetron HCl (Zofran Inj) 4 mg Q4H PRN IV PUSH NAUSEA OR VOMITING 01/20/17 10:15 01/20/17 13:16 Docusate Sodium (Colace) 100 mg BID PO 01/20/17 21:00 01/21/17 08:24 Bisacodyl (Dulcolax Ec) 10 mg DAILY PRN PO severe constipation 01/20/17 10:15 Lactulose (Lactulose Liq) 30 ml DAILY PRN PO severe constipation 01/20/17 10:15 Amphetamine/ Dextroamphetamine (Adderall) 30 mg DAILY PO 01/21/17 09:00 01/21/17 08:24 Clonazepam (KlonoPIN) 1 mg HS PO 01/20/17 21:00 01/20/17 22:05 Gabapentin (Neurontin) 100 mg HS PO 01/20/17 21:00 01/20/17 22:03 Lactobacillus Acidophilus (Lactinex) 1 tab DAILY PO 01/21/17 09:00 01/21/17 08:24 Multivitamins (Theragran) 1 tab DAILY PO 01/21/17 09:00 01/21/17 08:24 Pantoprazole Sodium (Protonix) 20 mg DAILY PO 01/21/17 09:00 01/21/17 08:23 Quetiapine Fumarate (SEROquel) 800 mg HS PO 01/20/17 21:00 01/20/17 22:05 Tramadol HCl (Ultram) 50 mg Q4H PRN PO pain 1-10 01/20/17 11:30 01/21/17 06:23 Promethazine HCl (Phenergan) 25 mg Q4H PRN PO n/v 01/20/17 15:15 01/21/17 08:24 Meclizine HCl (Antivert) 25 mg Q6HR PO 01/20/17 18:00 01/21/17 06:22 (Latia Sosa) Medical Decision Making MDM Remarks 51 y/o male s/p PLIF, POD 2 post-op nausea, improved (Latia Sosa) Plan Plan Remarks cont supportive care cont RACE BOARD ATTENDANT, dc Tramadol and start Lortab prn for surgical pain control cont therapy, TLSO OOB IS every hour cont nonchemical dvt prophylaxis in view of recent sx, SCDs and TEDs magnesium citrate for constipation medical mgt following, appreciate assistance (Latia Sosa) Attending Statement Neuro. Neuro checks in a serial fashion. Respiratory. pulmonary toilette, nasotracheal suction, and breathing treatments with nebulizers. PT and OT eval Nutrition. NPO Renal. monitor closely urine output, BUN and creatinine Endocrine. Monitor serial Acu checks and SSI for tight control ID monitor for signs of infection Protonix for stress ulcer prophylaxis Jun hose and SCD's for DVT prophylaxis The exam, history, and the medical decision-making described in the above note were completed with the assistance of the mid-level provider. I reviewed and agree with the findings presented. I attest that I had a [id number] encounter with the patient on the same day, and personally performed and documented my assessment and findings in the medical record. (Douglas Partida MD) Latia Sosa Jan 21, 2017 11:02 Douglas Partida MD Jan 22, 2017 08:42
[2017-01-21] MEDS ORDERED: WALKER WHEELS/F1 MIS (11:04)
--- NOTE | 2017-01-21 11:06 | HHI.FF ---
Face to Face Verification Diagnosis: (1) S/P lumbar spinal fusion Physical Therapy Order: Improve ambulation (leg exercises as tolerated) Home Health Nursing Order: Medical education Signs/symptoms of disease process Medication education-adverse effect Wound care and dressing changes (keep prineo dressing on) Nursing assessment with vital signs I have seen patient Sandoval Rosenberg on 01/21/17. My clinical findings support the need for the requested home health care services because: Ltd mobility - disease progression Deconditioned w/ increased weakness High risk of falls I certify that my clinical findings support that this patient is homebound because: Post-op weakness Unsteady gait/balance Latia Sosa Jan 21, 2017 11:06
[2017-01-21] MEDS ORDERED: MAGNESIUM CITRATE SOLN 300 ML BTL PO ONE (11:15)
[2017-01-21 12:00] VITALS: BP 118/79; PULSE 82; RESP 16; TEMP 98.8; O2SAT 95
[2017-01-21] MEDS: HYDROmorphone HCL PCA 6 MG/30 ML IV SCH (13:54)
[2017-01-21 16:00] VITALS: BP 113/90; PULSE 112; RESP 16; TEMP 98.2; O2SAT 96
[2017-01-21] MEDS: TAMSULOSIN HCL 0.4 MG CAP PO SCH (17:19)
[2017-01-21 20:05] VITALS: BP 145/89; PULSE 101; RESP 18; TEMP 97.6; O2SAT 96
[2017-01-21] MEDS: QUEtiapine FUMARATE 200 MG TAB PO SCH (21:49)
[2017-01-21] MEDS: clonazePAM 1 MG TAB PO SCH (21:49)
[2017-01-21] MEDS: GABAPENTIN 100 MG CAP PO SCH (21:49)
[2017-01-22 00:05] VITALS: BP 136/86; PULSE 108; RESP 18; TEMP 98.7; O2SAT 94
[2017-01-22] MEDS: MECLIZINE HCL 25 MG TAB PO SCH ×5 (00:42→23:20)
[2017-01-22] MEDS: HYDROmorphone HCL PCA 6 MG/30 ML IV SCH (02:49)
[2017-01-22 04:05] VITALS: BP 118/76; PULSE 109; RESP 18; TEMP 98.8; O2SAT 94
[2017-01-22] MEDS: PCA - TOTAL MG DILAUDID DELIVERED PER SHIFT SCH ×4 (06:59→22:26)
[2017-01-22] MEDS: SODIUM CHLOR 0.9% 1000 ML INJ 1,000 ML IV SCH ×2 (07:00→22:26)
[2017-01-22] MEDS: NS + KCL 20 MEQ INJ 1,000 ML IV SCH ×3 (07:00→22:26)
[2017-01-22 08:00] VITALS: BP 123/69; PULSE 103; RESP 20; TEMP 97.5; O2SAT 93
[2017-01-22] MEDS: DOCUSATE SODIUM 100 MG CAP PO SCH ×2 (08:16→20:05)
[2017-01-22] MEDS: PANTOPRAZOLE SOD 20 MG DELAYED RELEASE TAB PO SCH (08:16)
[2017-01-22] MEDS: DEXTROAMPHETAMINE/AMPHETAMINE 30 MG TAB PO SCH (08:16)
[2017-01-22] MEDS: MULTIVITAMIN TAB PO SCH (08:17)
[2017-01-22] MEDS: LACTOBACILLUS ACIDOPHILUS TAB PO SCH (08:17)
[2017-01-22] MEDS: PANTOPRAZOLE SODIUM 40 MG VIAL IVP SCH (08:17)
[2017-01-22] MEDS: SODIUM CHLORIDE 0.9% FLUSH 5 ML FLUSH IVF SCH ×2 (08:18→20:06)
[2017-01-22 12:00] VITALS: BP 120/78; PULSE 109; RESP 20; TEMP 98.2; O2SAT 95
[2017-01-22] MEDS: ACETAMINOPHEN/HYDROcodone 325 MG/10 MG TAB PO PRN ×3 (12:58→21:29)
--- NOTE | 2017-01-22 14:30 | HHI.PR ---
Subjective Remarks No new complaints. Objective Vitals Vital Signs Date Time Temp Pulse Resp B/P Pulse Ox O2 Delivery O2 Flow Rate FiO2 01/22/17 12:00 98.2 109 20 120/78 95 01/22/17 08:00 97.5 103 20 123/69 93 01/22/17 06:59 17 01/22/17 04:05 98.8 109 18 118/76 94 01/22/17 03:19 17 01/22/17 02:49 18 01/22/17 00:05 98.7 108 18 136/86 94 01/21/17 21:50 18 01/21/17 20:05 97.6 101 18 145/89 96 01/21/17 19:02 Room Air 01/21/17 16:00 98.2 112 16 113/90 96 01/21/17 01/21/17 01/22/17 15:00 23:00 07:00 Intake Total 600 ml 308 ml 703 ml Output Total 165 ml 20 ml 660 ml Balance 435 ml 288 ml 43 ml Intake Oral 600 ml 240 ml 240 ml IV Total 68 ml 463 ml Output Urine Total 125 ml 650 ml Drainage Total 40 ml 20 ml 10 ml Bladder Scan Volume Amount 426 ml # Voids 2 # Bowel Movements 0 1 0 Result Diagram: 01/20/17 0643 01/20/17 0643 Imaging Last Impressions Lumbar Spine X-Ray 01/19/17 0000 Signed Impressions: Service Date/Time: Thursday, January 19, 2017 12:36 - CONCLUSION: Interval fusion at the L3-4 and L4-5 levels. Orestes Hartley MD Objective Remarks GENERAL: This is a well-nourished, well-developed patient, in no apparent distress. CARDIOVASCULAR: Regular rate and rhythm without murmurs, gallops, or rubs. RESPIRATORY: Clear to auscultation. Breath sounds equal bilaterally. No wheezes , rales, or rhonchi. GASTROINTESTINAL: Abdomen soft, non-tender, nondistended. Normal active bowel sounds MUSCULOSKELETAL: Extremities without clubbing, cyanosis, or edema. NEURO: Alert & Oriented x4 to person, place, time, situation. Moves all ext x4 A/P Problem List: (1) Radiculopathy Status: Acute Plan: - Pt is 51 yo presenting with bilateral lower extremity radiculopathy. He was - admitted by Dr Partida and taken 01/19 for L4-L5 decompressive laminectomy, interbody arthrodesis using Peek cage filled with autologous iliac crest bone graft, L4-L5 posterolateral fusion using autologous iliac crest bone graft, with demineralized bone matrix, L4-L5 instrumental fixation using transpedicular screws and rods. - n/v resolved - pain controlled with PO norco - SMOKE CONTROL SUPERVISOR stopped - laxative regimen - tolerating diet -dvt prophylaxis -PT - anticipate d/c to home with HHC in 1-2 days (2) Bipolar 1 disorder Status: Chronic Plan: - seroquel (3) Anxiety and depression Status: Chronic Plan: home meds. Pedrito Marks DO Jan 22, 2017 14:30 Pedrito Marks DO Jan 22, 2017 14:30
--- NOTE | 2017-01-22 14:40 | HHI.FF ---
Face to Face Verification Diagnosis: (1) Radiculopathy (2) S/P lumbar spinal fusion (3) Bipolar 1 disorder (4) HTN (hypertension) Physical Therapy Order: Evaluate and Treat, Improve ambulation, Strength and gait training Home Health Nursing Order: Medical education Signs/symptoms of disease process Medication education-adverse effect Wound care and dressing changes Nursing assessment with vital signs I have seen patient Sandoval Rosenberg on 01/22/17. My clinical findings support the need for the requested home health care services because: Ltd mobility - disease progression Deconditioned w/ increased weakness Med compliance is questionable Limited ability to care for self Need for psychosocial assistance I certify that my clinical findings support that this patient is homebound because: Unsafe to leave home unassisted Need for psychosocial assistance Unable to use public transportation Pedrito Marks DO Jan 22, 2017 14:40
[2017-01-22 16:00] VITALS: BP 139/75; PULSE 101; RESP 20; TEMP 98.1; O2SAT 95
--- NOTE | 2017-01-22 16:04 | HHI.NSPN ---
(Anastacio Cordero) History Chief Complaint: Improved back pain (Anastacio Cordero) Interval History Mr. Rosenberg s/p L4-L5 decompressive laminectomy, interbody arthrodesis using Peek cage filled with autologous iliac crest bone graft, L4-L5 posterolateral fusion using autologous iliac crest bone graft, with, demineralized bone matrix , L4-L5 instrumental fixation using transpedicular screws and rods, microsurgical dissection on 01/19/17. 01/20: sitting up in chair, c/o moderate nausea with pain medications, requesting less stronger. 01/21: pain a little better, controlled with RESEARCH GENETICIST, nausea also better today, reports not tolerating Tramadol. c/o constipation. 01/22: Patient up and ambulating with wheeled walker, reports some pain to back but improved from yesterday, still with constipation. (Anastacio Cordero) System Review Comments Respiratory: Denies any shortness of breath or productive cough. Cardiovascular: Denies any chest pain, palpitations or irregular heartbeat. Gastrointestinal: Constipation. Denies any abdominal pain, nausea, vomiting or incontinence of stool. Genitourinary: Denies any incontinence of urine. Musculoskeletal: Some back pain but better. Denies any extremity pain. Neurological. Some numbness to the calves that was present before. Denies any headache, dizziness or tingling. (Anastacio Cordero) Exam Results Vital Signs Date Time Temp Pulse Resp B/P Pulse Ox O2 Delivery O2 Flow Rate FiO2 01/22/17 12:00 98.2 109 20 120/78 95 01/21/17 19:02 Room Air 01/20/17 08:29 21 01/20/17 08:00 2.00 Intake and Output 01/21/17 01/21/17 01/22/17 08:00 16:00 00:00 Intake Total 360 ml 600 ml 308 ml Output Total 1290 ml 165 ml 20 ml Balance -930 ml 435 ml 288 ml (Anastacio Cordero) Physical Examination AAOx3, NAD, normal affect Speech clear & appropriate Decreased sensation to bilateral calves CAMERON, motor strength equal In TLSO brace (Anastacio Cordero) Medical Decision Making Impression and Plan Impression: PLIF, POD 3 Post-op nausea resolved Plan: Continue supportive care Medical mgmt per Hospitalist Serial neuro checks Pain control with Lortab PRN Mobilise patient w/assistance TLSO when OOB PT/OT tx DVT prophylaxis w/SCDs and TEDs Pulmonary toilette, nasotracheal suction, and breathing treatments with nebulizers. Closely monitor urine output, BUN and creatinine Protonix for stress ulcer prophylaxis D/C TERI drain (Anastacio Cordero) Attending Statement I have personally seen and examined the patient on the date of this note. Pertinent documentation and study results have been reviewed by the undersigned. I have personally developed the treatment plan and performed medical decision making. Agree with findings, exam, and treatment plan as noted above. Patient's dressing dry and intact today. Mild to moderate serosanguineous drainage output. He is ambulating in the room with a rolling walker. Appears recently comfortable. Complains of moderate persistent back pain without significant radiation to the lower extremity. Lower extremity sensorimotor exam is intact per the undersigned Discussed with patient. He feels that he still requires intravenous pain medication. We will plan on discharge home tomorrow if pain continues to improve. (Sami Mariee MD) Anastacio Cordero Jan 22, 2017 16:04 Sami Mariee MD Jan 22, 2017 21:31
[2017-01-22] MEDS: TAMSULOSIN HCL 0.4 MG CAP PO SCH (17:30)
[2017-01-22 20:05] VITALS: BP 140/94; PULSE 92; RESP 18; TEMP 96.9; O2SAT 96
[2017-01-22] MEDS: GABAPENTIN 100 MG CAP PO SCH (20:05)
[2017-01-22] MEDS: QUEtiapine FUMARATE 200 MG TAB PO SCH (20:06)
[2017-01-22] MEDS: clonazePAM 1 MG TAB PO SCH (20:06)
[2017-01-23 00:05] VITALS: BP 116/67; PULSE 102; RESP 18; TEMP 98.9; O2SAT 96
[2017-01-23 08:00] VITALS: BP 119/84; PULSE 98; RESP 20; TEMP 98.2; O2SAT 94
[2017-01-23] MEDS: PANTOPRAZOLE SOD 20 MG DELAYED RELEASE TAB PO SCH (08:22)
[2017-01-23] MEDS: DEXTROAMPHETAMINE/AMPHETAMINE 30 MG TAB PO SCH (08:23)
[2017-01-23] MEDS: DOCUSATE SODIUM 100 MG CAP PO SCH (08:23)
[2017-01-23] MEDS: MULTIVITAMIN TAB PO SCH (08:23)
[2017-01-23] MEDS: SODIUM CHLORIDE 0.9% FLUSH 5 ML FLUSH IVF SCH (08:23)
[2017-01-23] MEDS: ACETAMINOPHEN/HYDROcodone 325 MG/10 MG TAB PO PRN ×2 (08:23→12:39)
[2017-01-23] MEDS: PANTOPRAZOLE SODIUM 40 MG VIAL IVP SCH (08:23)
[2017-01-23] MEDS: LACTOBACILLUS ACIDOPHILUS TAB PO SCH (08:23)
[2017-01-23] MEDS ORDERED: HYDR-3583 PO (10:00)
--- NOTE | 2017-01-23 10:09 | HHI.NSPN ---
History Chief Complaint: Improved back pain Interval History Mr. Rosenberg s/p L4-L5 decompressive laminectomy, interbody arthrodesis using Peek cage filled with autologous iliac crest bone graft, L4-L5 posterolateral fusion using autologous iliac crest bone graft, with, demineralized bone matrix , L4-L5 instrumental fixation using transpedicular screws and rods, microsurgical dissection on 01/19/17. 01/20: sitting up in chair, c/o moderate nausea with pain medications, requesting less stronger. 01/21: pain a little better, controlled with CARTRIDGE FILLER, nausea also better today, reports not tolerating Tramadol. c/o constipation. 01/22: Patient up and ambulating with wheeled walker, reports some pain to back but improved from yesterday, still with constipation. 01/23/17: Pt awake and alert. Sitting up in chair. Complains of incisional back pain but controlled with oral pain medication. No radiculopathy in LEs. Pt states numbness in posterior calfs. Pt requesting discharge home. Review of Systems General: Negative for: fever, chills, insomnia Respiratory: Negative for: shortness of breath, cough, sputum Cardiovascular: Negative for: chest pain Gastrointestinal: Negative for: nausea, vomitting, diarrhea, constipation Exam Results Vital Signs Date Time Temp Pulse Resp B/P Pulse Ox O2 Delivery O2 Flow Rate FiO2 01/23/17 08:00 98.2 98 20 119/84 94 01/21/17 19:02 Room Air 01/20/17 08:29 21 01/20/17 08:00 2.00 Intake and Output 01/22/17 01/22/17 01/23/17 08:00 16:00 00:00 Intake Total 703 ml 720 ml 240 ml Output Total 660 ml 325 ml 200 ml Balance 43 ml 395 ml 40 ml Physical Examination Resp: CTA bilaterally Heart: NSR no murmurs Abd: Soft positive bs Skin: No cyanosis or erythema Muscle: Moves LEs with good strength. Neuro: Pt awake and alert. Follows commands well. Speech clear and appropriate. Diminished sensation in posterior calfs to light touch. Lab, Micro, Other Results Last Impressions Lumbar Spine X-Ray 01/19/17 0000 Signed Impressions: Service Date/Time: Thursday, January 19, 2017 12:36 - CONCLUSION: Interval fusion at the L3-4 and L4-5 levels. Orestes Hartley MD 01/22/17 01/22/17 01/23/17 15:00 23:00 07:00 Intake Total 720 ml 240 ml 120 ml Output Total 325 ml 200 ml Balance 395 ml 40 ml 120 ml Intake Oral 720 ml 240 ml 120 ml Output Urine Total 325 ml 200 ml # Voids 2 # Bowel Movements 1 0 0 Medical Decision Making Impression and Plan A: 51 y/o M s/p L4/L5 PLIF P: Pt requests discharge home Follow up with Dr. Partida. Call office tomorrow for follow up appt. Continue with lumbar brace and restrictions. Tin Hayden Jan 23, 2017 10:09
[2017-01-23] MEDS: PCA - TOTAL MG DILAUDID DELIVERED PER SHIFT SCH (11:55)
[2017-01-23] MEDS: NS + KCL 20 MEQ INJ 1,000 ML IV SCH (11:55)
[2017-01-23] MEDS: MECLIZINE HCL 25 MG TAB PO SCH (11:55)
== END 2017-01-23 13:33 | disposition home or self-care (01) | DRG 460 ==
LOC: HSDI 01-19 06:21 → N06B 01-19 18:55
PROVIDERS: ADMIT Neurological Surgery; ATTEND Neurological Surgery
PROC: 0SB20ZZ Excision of Lumbar Vertebral Disc, Open Approach (ICD-10-PCS; 2017-01-19)
PROC: 0QB33ZZ Excision of Left Pelvic Bone, Percutaneous Approach (ICD-10-PCS; 2017-01-19)
PROC: 0SG00AJ Fusion of Lumbar Vertebral Joint with Interbody Fusion Device, Posterior Approach, Anterior Column, Open Approach (ICD-10-PCS; principal; 2017-01-19 11:48)
DX: M47.26 Other spondylosis with radiculopathy, lumbar region (principal); E84.9 Cystic fibrosis, unspecified; I10 Essential (primary) hypertension; K59.00 Constipation, unspecified; F41.8 Other specified anxiety disorders; F31.9 Bipolar disorder, unspecified
CPT/HCPCS: 72020; 76000; 80048; 85025; 86850; 86900; 86901; 94150; C1713; C9113; J0131; J0690; J1170; J1580; J1644; J2175; J2250; J2370; J2405; J3010; J3370; J3480; J7040; J7050; J7120; L0200; L0484; Q0169